=== PATIENT | male | born 1970 | race Caucasian/White ===

== ENCOUNTER 2016-05-30 03:01 | Emergency (ER) | payer MEDICARE, MEDICAID ==
[~2016-05-30 03:01] MED LIST: ACET50TAOT PO; AMBI5TAB PO; AUGM875T27 PO; BUPR300T34 PO; CARB1TAB20 PO; CARB200C5 PO; CARB20TA PO; CLON0.5T PO; DEXI60CA PO; DIPH25CA PO; DRIS50002 PO; DULO1CAP2 PO; FLOM5CAP PO; KLON0.5T PO; LIPI10TA PO; LISI10TA4 PO; METF500T PO; OMEP40CA2 PO; PERC10TA17 PO; PRIL40CA PO; PRIN20TA3 PO; TRIC145T PO; VENL37TA PO; VITMTA PO; WELL100T PO; WELLTAB40 PO; ZYPR5TAB2 PO
[2016-05-30] MEDS ORDERED: AUGMENTIN 875 MG TAB As Ordered ONE (04:33)
--- NOTE | 2016-05-30 04:44 | EDDOCDS ---
Nurse's Notes [facility] Name: Vic Wellington Age: 46 yrs Sex: Male : 1970 Arrival Date: 05/30/2016 Time: 03:01 Bed 15 Private MD: Kristian Starr Diagnosis: Acute maxillary sinusitis Presentation: 05/30 03:13 Presenting complaint: Patient states: Pt states he feels like he has a fever; aches in js15 face and body; states his sinuses are clogged. Complains of painful urination as well. Adult Sepsis Screening: The patient does not have new or worsening altered mentation. Patient's respiratory rate is less than 22. Systolic blood pressure is greater than 100. Patient has a qSOFA score of 0- Negative Sepsis Screen. Suicide/Homicide risk assessment- the patient denies having any suicidal and/or homicidal ideations and does not present with any other emotional, behavioral or mental health complaints. Status: Patient is not a agricultural services director or dependent. Transition of care: patient was not received from another setting of care. 03:13 Acuity: CHINEDU Level 4 js15 03:13 Method Of Arrival: Walkin/Carried/Asstd js15 Triage Assessment: 03:20 General: Appears in no apparent distress, comfortable. Pain: Location: "generalized js15 aches" Pain currently is 7 out of 10 on a pain scale. HIV screening NA for this visit Offered previously. Neurological: Level of Consciousness is awake, alert, obeys commands, Oriented to person, place, time. Respiratory: Airway is patent Respiratory effort is even, unlabored, Respiratory pattern is regular, symmetrical. Derm: Skin is pink, warm & dry. Historical: - Allergies: Amitriptyline; Codeine Sulfate; Nortriptyline; NSAIDS; - Home Meds: 1. carbamazepine 200 mg Oral CM12 2 caps 2 times per day 2. lisinopril 10 mg Oral tab 1 tab once daily 3. multivitamin Oral tab 1 tab daily 4. Vitamin D Oral 52677 unit every 2 weeks 5. Wellbutrin 300mg Oral tab daily 6. Lipitor 10 mg Oral tab 1 tab once daily 7. Coricidin HBP Cold and Flu 2-325 mg oral tab as needed (Last dose: 05/29/2016) - PMHx: Anxiety; Bipolar disorder; Bulging discs in neck and back; chronic sensory peripheral neuropathy; Depression; GERD; Hypercholesterolemia; Hypertension; Diabetes - NIDDM: controlled; - PSHx: none; - Social history: Smoking status: Patient states former smoker of tobacco. No barriers to communication noted, The patient speaks fluent Burkinan, Speaks appropriately for age. - Family history: Not pertinent. - : The pt / caregiver states he / she is not on anticoagulants. Home medication list is obtained from the patient, [employer] import data, pill bottles. - Exposure Risk Screening:: None identified. Screenin:41 Screening information is obtained from the patient. Fall risk: No risks identified. kas2 Assistance ADL's: requires no assistance with activities of daily living. Abuse/DV Screen: The patient / caregiver reports he/she is: not in a situation that causes fear, pain or injury. Abuse/DV Screen: The patient / caregiver reports he/she is: not in a situation that causes fear, pain or injury. Abuse/DV Screen: The patient / caregiver reports he/she is: not in a situation that causes fear, pain or injury. Nutritional screening: No deficits noted. Advance Directives: Currently, there is no health care proxy. There is no active DNR order. There is no living will. There is no Power of Product Development Actuary. home support is adequate. Assessment: 04:39 General: Appears in no apparent distress, uncomfortable, well nourished, well groomed, kas2 Behavior is appropriate for age, cooperative. Pain: Location: sinuses Pain currently is 6 out of 10 on a pain scale. Neurological: Level of Consciousness is awake, alert, Oriented to person, place, time. EENT: sinuses. Respiratory: Airway is patent Respiratory effort is even, unlabored, Respiratory pattern is regular, symmetrical, Breath sounds are clear bilaterally. Derm: Skin is intact, Skin is dry, Skin is pink, warm & dry. Skin temperature is warm. Vital Signs: 03:12 BP 142 / 93; Pulse 79; Resp 20; Temp 99.6(TE); Pulse Ox 96% on R/A; Weight 106.59 kg; js15 Height 6 ft. 0 in. (182.88 cm); 04:39 BP 143 / 93; Pulse 71; Resp 18; Temp 99.9(O); Pulse Ox 99% ; Pain 6/10; jlm 03:12 Body Mass Index 31.87 (106.59 kg, 182.88 cm) [facility] [place] Vitals: 03:12 Log In Time: May 30, 2016 at 03:01. 15 ED Course: 03:03 Patient visited by Bebo Keller, Reg. pm4 03:03 Kristian Starr is Private Physician. pm4 03:03 Patient moved to Waiting pm4 03:10 Patient moved to Triage 1 js15 03:15 Triage Initiated js15 03:21 Hoda Ahuja,RN is Primary Nurse. js15 03:21 Patient moved to 15 js15 03:57 [facility] Payment Agreement was scanned into [employer] and attached to record. hs2 04:03 Ruben Macario DO is Attending Physician. cs11 04:03 Patient visited by Ruben Macario DO. cs11 04:11 Patient moved to Radiology jono 04:16 Patient moved to 15 jono 04:40 Patient visited by Terra Pool, Cook Chief. [facility] 04:41 No IV's were initiated during this patient's visit. No procedures done that require kas2 assistance. 04:42 Patient visited by Johanna Bernstein RN. kas2 04:42 The patient / caregiver is instructed regarding the plan of care and ED course. kas2 Administered Medications: 04:35 Drug: Amoxicillin-Clavulanate 1 tabs [amoxicillin 875 mg-potassium clavulanate 125 mg kas2 tablet (1 tabs)] Route: PO; Order Results: There are currently no results for this order. Outcome: 04:29 Discharge ordered by Provider. cs11 04:41 Discharge Assessment: patient administered narcotics - no. The following High Risk kas2 Discharge criteria are identified: Discharged to home ambulatory, with friend. Condition: good Condition: stable Condition: improved. CT Study completed. Property :Personal belongings accompany Pt. 04:42 Patient left the ED. kas2 Signatures: Acevedo, Allen jono Ruben Macario DO DO cs11 Terra Pool, Cook Chief Unit Tanya Velazquez RN RN js15 Suki Parry, Reg Reg hs2 Johanna Bernstein RN RN kas2 Bebo Keller, Reg Reg pm4 MTDD
--- NOTE | 2016-05-30 04:44 | EDDOCDS ---
Physician Documentation [facility] Name: Vic Wellington Age: 46 yrs Sex: Male : 1970 Arrival Date: 05/30/2016 Time: 03:01 Bed 15 Private MD: Kristian Starr Disposition: 05/30/16 04:29 Discharged to Home/Self Care. Impression: Acute maxillary sinusitis. - Condition is Stable. - Prescriptions for Augmentin 500- 125 mg Oral Tablet - take 1 tablet by ORAL route every 8 hours for 10 days; 30 tablet. - Medication Reconciliation, Local Pharmacy Hours form. - Follow up: Private Physician; When: Call to arrange an appointment; Reason: Recheck today's complaints. - Problem is new. - Symptoms have improved. Historical: - Allergies: Amitriptyline; Codeine Sulfate; Nortriptyline; NSAIDS; - Home Meds: 1. carbamazepine 200 mg Oral CM12 2 caps 2 times per day 2. lisinopril 10 mg Oral tab 1 tab once daily 3. multivitamin Oral tab 1 tab daily 4. Vitamin D Oral 98364 unit every 2 weeks 5. Wellbutrin 300mg Oral tab daily 6. Lipitor 10 mg Oral tab 1 tab once daily 7. Coricidin HBP Cold and Flu 2-325 mg oral tab as needed (Last dose: 05/29/2016) - PMHx: Anxiety; Bipolar disorder; Bulging discs in neck and back; chronic sensory peripheral neuropathy; Depression; GERD; Hypercholesterolemia; Hypertension; Diabetes - NIDDM: controlled; - PSHx: none; - Social history: Smoking status: Patient states former smoker of tobacco. No barriers to communication noted, The patient speaks fluent Kazakh, Speaks appropriately for age. - Family history: Not pertinent. - : The pt / caregiver states he / she is not on anticoagulants. Home medication list is obtained from the patient, [employer] import data, pill bottles. - Exposure Risk Screening:: None identified. Vital Signs: 05/30 03:12 BP 142 / 93; Pulse 79; Resp 20; Temp 99.6(TE); Pulse Ox 96% on R/A; Weight 106.59 kg / js15 234.99 lbs; Height 6 ft. 0 in. (182.88 cm); 04:39 BP 143 / 93; Pulse 71; Resp 18; Temp 99.9(O); Pulse Ox 99% ; Pain 6/10; jlm 03:12 Body Mass Index 31.87 (106.59 kg, 182.88 cm) js15 MDM: 03:57 [facility] Payment Agreement was scanned into [employer] and attached to record. hs2 04:05 Chest, 2 View (pa\E\lat) Ordered. EDMS 04:06 Financial registration complete. hs2 04:26 Amoxicillin-Clavulanate 875 mg 1 tabs PO once ordered. cs11 Administered Medications: 04:35 Drug: Amoxicillin-Clavulanate 1 tabs [amoxicillin 875 mg-potassium clavulanate 125 mg kas2 tablet (1 tabs)] Route: PO; Signatures: Dispatcher [employer] EDMS Ruben Macario, DO cs11 Tanya Hammond,RN RN js15 Suki Parry, Reg Reg hs2 Johanna BernsteinRN RN kas2 The chart was reviewed and I authenticate all verbal orders and agree with the evaluation and treatment provided.Attachments: 03:57 [facility] Payment Agreement hs2 MTDD
--- NOTE | 2016-05-30 05:10 | REP ---
Clinical: Cough . Comparison: 04/10/2006 . Technique: PA and lateral. Findings: The mediastinum and cardiac silhouette are normal. The lung eckert are clear and without acute consolidation, effusion, or pneumothorax. The skeletal structures are intact and normal. Impression: 1. No acute cardiopulmonary process. Signed by Sincere Fisher MD 05/30/2016 05:02 A
--- NOTE | 2016-06-01 05:43 | EDDOCDS ---
Physician Documentation [facility] Name: Vic Wellington Age: 46 yrs Sex: Male : 1970 Arrival Date: 05/30/2016 Time: 03:01 Bed 15 Private MD: Kristian Starr Disposition: 05/30/16 04:29 Discharged to Home/Self Care. Impression: Acute maxillary sinusitis. - Condition is Stable. - Prescriptions for Augmentin 500- 125 mg Oral Tablet - take 1 tablet by ORAL route every 8 hours for 10 days; 30 tablet. - Medication Reconciliation, Local Pharmacy Hours form. - Follow up: Private Physician; When: Call to arrange an appointment; Reason: Recheck today's complaints. - Problem is new. - Symptoms have improved. Historical: - Allergies: Amitriptyline; Codeine Sulfate; Nortriptyline; NSAIDS; - Home Meds: 1. carbamazepine 200 mg Oral CM12 2 caps 2 times per day 2. lisinopril 10 mg Oral tab 1 tab once daily 3. multivitamin Oral tab 1 tab daily 4. Vitamin D Oral 69149 unit every 2 weeks 5. Wellbutrin 300mg Oral tab daily 6. Lipitor 10 mg Oral tab 1 tab once daily 7. Coricidin HBP Cold and Flu 2-325 mg oral tab as needed (Last dose: 05/29/2016) - PMHx: Anxiety; Bipolar disorder; Bulging discs in neck and back; chronic sensory peripheral neuropathy; Depression; GERD; Hypercholesterolemia; Hypertension; Diabetes - NIDDM: controlled; - PSHx: none; - Social history: Smoking status: Patient states former smoker of tobacco. No barriers to communication noted, The patient speaks fluent Estonian, Speaks appropriately for age. - Family history: Not pertinent. - : The pt / caregiver states he / she is not on anticoagulants. Home medication list is obtained from the patient, [employer] import data, pill bottles. - Exposure Risk Screening:: None identified. Vital Signs: 05/30 03:12 BP 142 / 93; Pulse 79; Resp 20; Temp 99.6(TE); Pulse Ox 96% on R/A; Weight 106.59 kg / js15 234.99 lbs; Height 6 ft. 0 in. (182.88 cm); 04:39 BP 143 / 93; Pulse 71; Resp 18; Temp 99.9(O); Pulse Ox 99% ; Pain 6/10; jlm 03:12 Body Mass Index 31.87 (106.59 kg, 182.88 cm) js15 MDM: 03:57 [facility] Payment Agreement was scanned into [employer] and attached to record. hs2 04:05 Chest, 2 View (pa\E\lat) Ordered. EDMS 04:06 Financial registration complete. hs2 04:26 Amoxicillin-Clavulanate 875 mg 1 tabs PO once ordered. cs11 14:29 T-Sheet-- Draft Copy was scanned into [employer] and attached to record. gb Administered Medications: 04:35 Drug: Amoxicillin-Clavulanate 1 tabs [amoxicillin 875 mg-potassium clavulanate 125 mg kas2 tablet (1 tabs)] Route: PO; Signatures: Dispatcher [employer] EDMS Yris Estrada, Reg Reg gb Ruben Macario, DO cs11 Tanya Hammond,RN RN js15 Suki Parry, Reg Reg hs2 Johanna Bernstein,FRANCISCO RN kas2 The chart was reviewed and I authenticate all verbal orders and agree with the evaluation and treatment provided.Attachments: 03:57 [facility] Payment Agreement hs2 14:29 T-Sheet-- Draft Copy gb Chart Complete MTDD
--- NOTE | 2016-06-01 05:43 | EDDOCDS ---
Nurse's Notes [facility] Name: Vic Wellington Age: 46 yrs Sex: Male : 1970 Arrival Date: 05/30/2016 Time: 03:01 Bed 15 Private MD: Kristian Starr Diagnosis: Acute maxillary sinusitis Presentation: 05/30 03:13 Presenting complaint: Patient states: Pt states he feels like he has a fever; aches in js15 face and body; states his sinuses are clogged. Complains of painful urination as well. Adult Sepsis Screening: The patient does not have new or worsening altered mentation. Patient's respiratory rate is less than 22. Systolic blood pressure is greater than 100. Patient has a qSOFA score of 0- Negative Sepsis Screen. Suicide/Homicide risk assessment- the patient denies having any suicidal and/or homicidal ideations and does not present with any other emotional, behavioral or mental health complaints. Status: Patient is not a interlibrary loan services librarian or dependent. Transition of care: patient was not received from another setting of care. 03:13 Acuity: CHINEDU Level 4 js15 03:13 Method Of Arrival: Walkin/Carried/Asstd js15 Triage Assessment: 03:20 General: Appears in no apparent distress, comfortable. Pain: Location: "generalized js15 aches" Pain currently is 7 out of 10 on a pain scale. HIV screening NA for this visit Offered previously. Neurological: Level of Consciousness is awake, alert, obeys commands, Oriented to person, place, time. Respiratory: Airway is patent Respiratory effort is even, unlabored, Respiratory pattern is regular, symmetrical. Derm: Skin is pink, warm & dry. Historical: - Allergies: Amitriptyline; Codeine Sulfate; Nortriptyline; NSAIDS; - Home Meds: 1. carbamazepine 200 mg Oral CM12 2 caps 2 times per day 2. lisinopril 10 mg Oral tab 1 tab once daily 3. multivitamin Oral tab 1 tab daily 4. Vitamin D Oral 56377 unit every 2 weeks 5. Wellbutrin 300mg Oral tab daily 6. Lipitor 10 mg Oral tab 1 tab once daily 7. Coricidin HBP Cold and Flu 2-325 mg oral tab as needed (Last dose: 05/29/2016) - PMHx: Anxiety; Bipolar disorder; Bulging discs in neck and back; chronic sensory peripheral neuropathy; Depression; GERD; Hypercholesterolemia; Hypertension; Diabetes - NIDDM: controlled; - PSHx: none; - Social history: Smoking status: Patient states former smoker of tobacco. No barriers to communication noted, The patient speaks fluent Chilean, Speaks appropriately for age. - Family history: Not pertinent. - : The pt / caregiver states he / she is not on anticoagulants. Home medication list is obtained from the patient, [employer] import data, pill bottles. - Exposure Risk Screening:: None identified. Screenin:41 Screening information is obtained from the patient. Fall risk: No risks identified. kas2 Assistance ADL's: requires no assistance with activities of daily living. Abuse/DV Screen: The patient / caregiver reports he/she is: not in a situation that causes fear, pain or injury. Abuse/DV Screen: The patient / caregiver reports he/she is: not in a situation that causes fear, pain or injury. Abuse/DV Screen: The patient / caregiver reports he/she is: not in a situation that causes fear, pain or injury. Nutritional screening: No deficits noted. Advance Directives: Currently, there is no health care proxy. There is no active DNR order. There is no living will. There is no Power of Kitchen Manager. home support is adequate. Assessment: 04:39 General: Appears in no apparent distress, uncomfortable, well nourished, well groomed, kas2 Behavior is appropriate for age, cooperative. Pain: Location: sinuses Pain currently is 6 out of 10 on a pain scale. Neurological: Level of Consciousness is awake, alert, Oriented to person, place, time. EENT: sinuses. Respiratory: Airway is patent Respiratory effort is even, unlabored, Respiratory pattern is regular, symmetrical, Breath sounds are clear bilaterally. Derm: Skin is intact, Skin is dry, Skin is pink, warm & dry. Skin temperature is warm. Vital Signs: 03:12 BP 142 / 93; Pulse 79; Resp 20; Temp 99.6(TE); Pulse Ox 96% on R/A; Weight 106.59 kg; js15 Height 6 ft. 0 in. (182.88 cm); 04:39 BP 143 / 93; Pulse 71; Resp 18; Temp 99.9(O); Pulse Ox 99% ; Pain 6/10; jlm 03:12 Body Mass Index 31.87 (106.59 kg, 182.88 cm) 15 Vitals: 03:12 Log In Time: May 30, 2016 at 03:01. js15 ED Course: 03:03 Patient visited by Bebo Keller Reg. pm4 03:03 Kristian Starr is Private Physician. pm4 03:03 Patient moved to Waiting pm4 03:10 Patient moved to Triage 1 js15 03:15 Triage Initiated js15 03:21 Hoda Ahuja,RN is Primary Nurse. js15 03:21 Patient moved to 15 js15 03:57 [facility] Payment Agreement was scanned into [employer] and attached to record. hs2 04:03 Ruben Macario DO is Attending Physician. cs11 04:03 Patient visited by Ruben Macario DO. cs11 04:11 Patient moved to Radiology jono 04:16 Patient moved to 15 jono 04:40 Patient visited by Terra Pool, Water Mangle Tender. jlm 04:41 No IV's were initiated during this patient's visit. No procedures done that require kas2 assistance. 04:42 Patient visited by Johanna Bernstein RN. kas2 04:42 The patient / caregiver is instructed regarding the plan of care and ED course. kas2 05:34 Chest, 2 View (pa\\E\\lat) Returned. EDMS 14:29 T-Sheet-- Draft Copy was scanned into [employer] and attached to record. gb Administered Medications: 04:35 Drug: Amoxicillin-Clavulanate 1 tabs [amoxicillin 875 mg-potassium clavulanate 125 mg kas2 tablet (1 tabs)] Route: PO; Order Results: Radiology Order: Chest, 2 View (pa\\E\\lat) Test: Chest, 2 View (pa\\E\\lat) REASON FOR EXAMINATION: Cough; Clinical: Cough .; ; Comparison: 04/10/2006 .; ; Technique: PA and lateral.; ; Findings:; The mediastinum and cardiac silhouette are normal. The lung eckert are clear and; without acute consolidation, effusion, or pneumothorax. The skeletal structures; are intact and normal.; ; Impression:; 1. No acute cardiopulmonary process.; ; ; Signed by; Sincere Fisher MD 05/30/2016 05:02 A; Outcome: 04:29 Discharge ordered by Provider. cs11 04:41 Discharge Assessment: patient administered narcotics - no. The following High Risk [facility]2 Discharge criteria are identified: Discharged to home ambulatory, with friend. Condition: good Condition: stable Condition: improved. CT Study completed. Property :Personal belongings accompany Pt. 04:42 Patient left the ED. [facility] Signatures: Dispatcher [employer] EDMS Allen Acevedo Gloria, Reg Reg gb Ruben Macario, DO cs11 Terra Pool, Water Mangle Tender Unit Tanya Velazquez,RN RN js15 Suki Parry, Reg Reg hs2 Johanna Bernstein RN RN kas2 Bebo Keller, Reg Reg pm4 Chart Complete MTDD
--- NOTE | 2016-06-01 05:43 | EDDOCDS ---
Physician Documentation [facility] Name: Vic Wellington Age: 46 yrs Sex: Male : 1970 Arrival Date: 05/30/2016 Time: 03:01 Bed 15 Private MD: Kristian Starr Disposition: 05/30/16 04:29 Discharged to Home/Self Care. Impression: Acute maxillary sinusitis. - Condition is Stable. - Prescriptions for Augmentin 500- 125 mg Oral Tablet - take 1 tablet by ORAL route every 8 hours for 10 days; 30 tablet. - Medication Reconciliation, Local Pharmacy Hours form. - Follow up: Private Physician; When: Call to arrange an appointment; Reason: Recheck today's complaints. - Problem is new. - Symptoms have improved. Historical: - Allergies: Amitriptyline; Codeine Sulfate; Nortriptyline; NSAIDS; - Home Meds: 1. carbamazepine 200 mg Oral CM12 2 caps 2 times per day 2. lisinopril 10 mg Oral tab 1 tab once daily 3. multivitamin Oral tab 1 tab daily 4. Vitamin D Oral 35509 unit every 2 weeks 5. Wellbutrin 300mg Oral tab daily 6. Lipitor 10 mg Oral tab 1 tab once daily 7. Coricidin HBP Cold and Flu 2-325 mg oral tab as needed (Last dose: 05/29/2016) - PMHx: Anxiety; Bipolar disorder; Bulging discs in neck and back; chronic sensory peripheral neuropathy; Depression; GERD; Hypercholesterolemia; Hypertension; Diabetes - NIDDM: controlled; - PSHx: none; - Social history: Smoking status: Patient states former smoker of tobacco. No barriers to communication noted, The patient speaks fluent Swedish, Speaks appropriately for age. - Family history: Not pertinent. - : The pt / caregiver states he / she is not on anticoagulants. Home medication list is obtained from the patient, [employer] import data, pill bottles. - Exposure Risk Screening:: None identified. Vital Signs: 05/30 03:12 BP 142 / 93; Pulse 79; Resp 20; Temp 99.6(TE); Pulse Ox 96% on R/A; Weight 106.59 kg / js15 234.99 lbs; Height 6 ft. 0 in. (182.88 cm); 04:39 BP 143 / 93; Pulse 71; Resp 18; Temp 99.9(O); Pulse Ox 99% ; Pain 6/10; jlm 03:12 Body Mass Index 31.87 (106.59 kg, 182.88 cm) js15 MDM: 03:57 [facility] Payment Agreement was scanned into [employer] and attached to record. hs2 04:05 Chest, 2 View (pa\E\lat) Ordered. EDMS 04:06 Financial registration complete. hs2 04:26 Amoxicillin-Clavulanate 875 mg 1 tabs PO once ordered. cs11 14:29 T-Sheet-- Draft Copy was scanned into [employer] and attached to record. gb Administered Medications: 04:35 Drug: Amoxicillin-Clavulanate 1 tabs [amoxicillin 875 mg-potassium clavulanate 125 mg kas2 tablet (1 tabs)] Route: PO; Signatures: Dispatcher [employer] EDMS Yris Estrada, Reg Reg gb Ruben Macario, DO cs11 Tanya Hammond,RN RN js15 Suki Parry, Reg Reg hs2 Johanna Bernstein,FRANCISCO RN kas2 The chart was reviewed and I authenticate all verbal orders and agree with the evaluation and treatment provided.Attachments: 03:57 [facility] Payment Agreement hs2 14:29 T-Sheet-- Draft Copy gb Chart Complete MTDD
== END 2016-05-30 04:42 | disposition home or self-care (01) ==
LOC: M ED 03:01
DX: J01.90 Acute sinusitis, unspecified (principal); F31.9 Bipolar disorder, unspecified; M51.9 Unspecified thoracic, thoracolumbar and lumbosacral intervertebral disc disorder; G60.9 Hereditary and idiopathic neuropathy, unspecified; K21.9 Gastro-esophageal reflux disease without esophagitis; E78.00 Pure hypercholesterolemia, unspecified; I10 Essential (primary) hypertension; E11.9 Type 2 diabetes mellitus without complications; Z79.899 Other long term (current) drug therapy; Z88.8 Allergy status to other drugs, medicaments and biological substances; Z88.5 Allergy status to narcotic agent; Z88.6 Allergy status to analgesic agent; Z87.891 Personal history of nicotine dependence

== ENCOUNTER → 2016-09-28 | Outpatient (REF) | payer MEDICARE, MEDICAID | LOC: M SFHCPLAZ 13:07 | PROVIDERS: ATTEND Nurse Practitioner Adult Health | DX: R35.0 Frequency of micturition (principal) | CPT/HCPCS: 81002; 87086; G0463 ==

== ENCOUNTER → 2016-11-09 | Outpatient (REF) | payer MEDICARE ==
[~2016-11-09] MED LIST changes: -AUGM875T27 PO; +AUGM875T28 PO; -DEXI60CA PO; +DEXI60CA2 PO; -METF500T PO; +METF500T13 PO; -PERC10TA17 PO; +PERC10TA26 PO; -TRIC145T PO; +TRIC145T22 PO
== END ==
LOC: M SFHCPLAZ 11:45
PROVIDERS: ATTEND Internal Medicine
DX: I10 Essential (primary) hypertension (principal); E78.5 Hyperlipidemia, unspecified; Z79.899 Other long term (current) drug therapy

== ENCOUNTER → 2017-01-02 | Outpatient (CLI) | payer MEDICARE, MEDICAID | LOC: M LAB 07:49 | PROVIDERS: ATTEND Urology | DX: E29.1 Testicular hypofunction (principal) ==

== ENCOUNTER → 2017-01-18 | Outpatient (REF) | payer MEDICARE, MEDICAID | LOC: M SMT 13:06 | PROVIDERS: ATTEND Urology | DX: N39.0 Urinary tract infection, site not specified (principal) | CPT/HCPCS: 87086; G0463 ==

== ENCOUNTER 2017-03-01 08:30 | Outpatient (RCR) | payer MEDICARE, MEDICAID | END 2017-03-06 | disposition home or self-care (01) | LOC: M OT 08:30 | PROVIDERS: ATTEND Orthopaedic Surgery | DX: Z51.89 Encounter for other specified aftercare (principal); M79.642 Pain in left hand; M25.532 Pain in left wrist; M62.81 Muscle weakness (generalized) | CPT/HCPCS: 97035; 97110; 97140; 97165; G8984 ==

== ENCOUNTER 2017-03-13 12:41 | Outpatient (RCR) | payer MEDICARE, MEDICAID | END 2017-04-05 | LOC: M OT 12:41 | PROVIDERS: ATTEND Orthopaedic Surgery | DX: M79.642 Pain in left hand (principal); M25.532 Pain in left wrist | CPT/HCPCS: 97110; 97140; G8984; G8985; G8986 ==

== ENCOUNTER → 2017-04-10 | Outpatient (REF) | payer MEDICARE | LOC: M SMT 13:10 | PROVIDERS: ATTEND Urology | DX: R30.0 Dysuria (principal) | CPT/HCPCS: 51798; 81001; 87086; G0463 ==

== ENCOUNTER → 2017-05-22 | Outpatient (REF) | payer MEDICARE, MEDICAID ==
[2017-05-22 12:36] LABS: C REACTIVE PROTEIN QUANTITATIV < 0.30 MG/DL (0.00-0.30)
[2017-05-22 12:36] LABS: RHEUMATOID FACTOR QUANT < 10.0 IU/ML (0-15.0)
[2017-05-22 13:05] LABS: ERYTHROCYTE SEDIMENTATION RATE 3 mm/hr (0-15)
== END ==
LOC: M LABDRAWP 12:10
DX: G56.03 Carpal tunnel syndrome, bilateral upper limbs (principal)

== ENCOUNTER → 2017-05-22 | Outpatient (REF) | payer MEDICARE, MEDICAID ==
[2017-05-22 12:28] LABS: HEMATOCRIT 44.7 % (42.0-52.0); HEMOGLOBIN 15.3 g/dl (14.0-18.0); MEAN CORPUSCULAR HEMOGLOBIN 31.4 pg (27.0-33.0); MEAN CORPUSCULAR HGB CONC 34.2 g/dl (32.0-36.5); MEAN CORPUSCULAR VOLUME 91.8 fl (80.0-96.0); PLATELET COUNT, AUTOMATED 181 10^3/uL (150-450); RED BLOOD COUNT 4.87 10^6/uL (4.30-6.10); RED CELL DISTRIBUTION WIDTH 12.5 % (11.5-14.5); WHITE BLOOD COUNT 5.2 10^3/uL (4.0-10.0)
[2017-05-22 12:40] LABS: ALBUMIN 4.4 GM/DL (3.2-5.2); ALBUMIN/GLOBULIN RATIO 1.52 (1.00-1.93); ALKALINE PHOSPHATASE 67 U/L (45-117); ALT/SGPT 42 U/L (12-78); ANION GAP 7 MEQ/L (8-16); AST/SGOT 22 U/L (7-37); BILIRUBIN,TOTAL 0.6 MG/DL (0.2-1.0); BLOOD UREA NITROGEN 21 MG/DL (7-18); CARBON DIOXIDE LEVEL 28 MEQ/L (21-32); CHLORIDE LEVEL 106 MEQ/L (98-107); CHOLESTEROL LEVEL 188 MG/DL (<200); CHOLESTEROL RISK RATIO 4.086 (<5); CREATININE FOR GFR 1.01 MG/DL (0.70-1.30); GLOMERULAR FILTRATION RATE > 60.0 (>60); GLUCOSE, FASTING 107 MG/DL (70-105); HDL CHOLESTEROL 46 MG/DL (>40); LDL CHOLESTEROL 117.6 MG/DL (<100); NON-HDL-C 142 MG/DL; POTASSIUM SERUM 4.4 MEQ/L (3.5-5.1); SODIUM LEVEL 141 MEQ/L (136-145); TOTAL PROTEIN 7.3 GM/DL (6.4-8.2); TRIGLYCERIDES LEVEL 122 MG/DL (<150)
[2017-05-22 13:01] LABS: ESTIMATED AVERAGE GLUCOSE 108 MG/DL (60-110); HEMOGLOBIN A1c 5.4 %
[2017-05-22 13:10] LABS: MALB URINE SIEMENS 19.1 MG/L; MAU/CREAT RATIO 8.3 MCG/MG (0.0-30.0)
== END ==
LOC: M SFHCPLAZ 07:59
DX: G62.9 Polyneuropathy, unspecified (principal); I10 Essential (primary) hypertension; E11.9 Type 2 diabetes mellitus without complications; E78.5 Hyperlipidemia, unspecified; G56.03 Carpal tunnel syndrome, bilateral upper limbs
CPT/HCPCS: 80053

== ENCOUNTER → 2017-07-26 | Outpatient (REF) | payer MEDICARE, MEDICAID ==
[2017-07-26 13:29] LABS: ALBUMIN 3.8 GM/DL (3.2-5.2); ALBUMIN/GLOBULIN RATIO 1.31 (1.00-1.93); ALKALINE PHOSPHATASE 59 U/L (45-117); ALT/SGPT 43 U/L (12-78); ANION GAP 7 MEQ/L (8-16); AST/SGOT 18 U/L (7-37); BILIRUBIN,TOTAL 0.4 MG/DL (0.2-1.0); BLOOD UREA NITROGEN 19 MG/DL (7-18); CALCIUM LEVEL 8.9 MG/DL (8.5-10.1); CARBAMAZEPINE (TEGRETOL) LEVEL 3.1 UG/ML (4.0-10.0); CARBON DIOXIDE LEVEL 29 MEQ/L (21-32); CHLORIDE LEVEL 106 MEQ/L (98-107); CREATININE FOR GFR 0.73 MG/DL (0.70-1.30); GLOMERULAR FILTRATION RATE > 60.0 (>60); GLUCOSE, FASTING 98 MG/DL (70-100); POTASSIUM SERUM 4.4 MEQ/L (3.5-5.1); SODIUM LEVEL 142 MEQ/L (136-145); TOTAL PROTEIN 6.7 GM/DL (6.4-8.2)
[2017-07-26 13:49] LABS: HEMATOCRIT 41.3 % (42.0-52.0); HEMOGLOBIN 14.6 g/dl (14.0-18.0); MEAN CORPUSCULAR HEMOGLOBIN 31.9 pg (27.0-33.0); MEAN CORPUSCULAR HGB CONC 35.4 g/dl (32.0-36.5); MEAN CORPUSCULAR VOLUME 90.4 fl (80.0-96.0); PLATELET COUNT, AUTOMATED 156 10^3/uL (150-450); RED BLOOD COUNT 4.57 10^6/uL (4.30-6.10); RED CELL DISTRIBUTION WIDTH 12.2 % (11.5-14.5); WHITE BLOOD COUNT 4.5 10^3/uL (4.0-10.0)
== END ==
LOC: M SFHCPLAZ 10:00
DX: Z51.81 Encounter for therapeutic drug level monitoring (principal); Z79.899 Other long term (current) drug therapy
CPT/HCPCS: 80156

== ENCOUNTER → 2017-08-28 | Outpatient (REF) | payer MEDICARE, MEDICAID ==
[2017-08-28 13:58] LABS: ERYTHROCYTE SEDIMENTATION RATE 1 mm/hr (0-15)
[2017-08-28 14:53] LABS: FOLATE > 24.0 NG/ML; VITAMIN B12 LEVEL 318 PG/ML
[2017-08-28 17:54] LABS: C REACTIVE PROTEIN QUANTITATIV < 0.30 MG/DL (0.00-0.30); FREE T4 0.78 NG/DL (0.76-1.46)
== END ==
LOC: M SFHCPLAZ 11:33
DX: R53.82 Chronic fatigue, unspecified (principal); M54.81 Occipital neuralgia
CPT/HCPCS: 82746

== ENCOUNTER → 2018-04-15 | Outpatient (REF) | payer OTHER ==
[2018-04-15 18:03] LABS: BASO % 0.8 % (0.0-1.0); EOS # 0.3 10^3/uL (0.0-0.50); EOS % 5.7 % (0.0-3.0); HEMATOCRIT 41.3 % (42.0-52.0); HEMOGLOBIN 14.5 g/dl (13.5-17.5); IMMATURE GRANULOCYTE % 0.2 % (0-3.0); LYMPH # 1.7 10^3/uL (1.5-4.5); LYMPH % 32.3 % (24.0-44.0); MEAN CORPUSCULAR HEMOGLOBIN 32.4 pg (27.0-33.0); MEAN CORPUSCULAR HGB CONC 35.1 g/dl (32.0-36.5); MEAN CORPUSCULAR VOLUME 92.2 fl (80.0-96.0); MONO # 0.4 10^3/uL (0.0-0.8); MONO % 8.4 % (0.0-5.0); NEUTROPHILS # 2.8 10^3/uL (1.8-7.7); NEUTROPHILS % 52.6 % (36.0-66.0); PLATELET COUNT, AUTOMATED 177 10^3/uL (150-450); RED BLOOD COUNT 4.48 10^6/uL (4.30-6.10); WHITE BLOOD COUNT 5.2 10^3/uL (4.0-10.0)
[2018-04-15 18:36] LABS: ALBUMIN 3.9 GM/DL (3.2-5.2); ALBUMIN/GLOBULIN RATIO 1.22 (1.00-1.93); ALKALINE PHOSPHATASE 88 U/L (45-117); ALT/SGPT 26 U/L (12-78); ANION GAP 8 MEQ/L (8-16); AST/SGOT 11 U/L (7-37); BILIRUBIN,TOTAL 0.2 MG/DL (0.2-1.0); BLOOD UREA NITROGEN 19 MG/DL (7-18); CARBON DIOXIDE LEVEL 27 MEQ/L (21-32); CHLORIDE LEVEL 106 MEQ/L (98-107); CREATININE FOR GFR 0.74 MG/DL (0.70-1.30); GLOMERULAR FILTRATION RATE > 60.0 (>56); GLUCOSE, FASTING 98 MG/DL (70-100); POTASSIUM SERUM 4.2 MEQ/L (3.5-5.1); SODIUM LEVEL 141 MEQ/L (136-145); TOTAL PROTEIN 7.1 GM/DL (6.4-8.2)
== END ==
LOC: M LABNEURO 13:48
DX: R56.9 Unspecified convulsions (principal)
CPT/HCPCS: 80156

== ENCOUNTER → 2018-06-20 | Outpatient (CLI) | payer MEDICARE ==
[~2018-06-20] MED LIST changes: +ACET500T15 PO; -ACET50TAOT PO; +CARB1CAP2 PO; -CARB200C5 PO; -CLON0.5T PO; +CLON0.5T8 PO; -DRIS50002 PO; +DRIS50003 PO; +FLOM0.4C39 PO; -FLOM5CAP PO
--- NOTE | 2018-06-20 15:21 | REP ---
RENAL AND BLADDER ULTRASOUND: Real-time sonographic evaluation of kidneys performed. The kidneys are normal in size and echotexture, right kidney measuring 14.4 x 7.3 x 8.1 cm, and left kidney 13.8 x 7.8 x 8.4 cm. There is no hydronephrosis bilaterally. A cyst in the lower pole of the right kidney measures 7.8 x 7.3 x 7.2 cm. Multiple vascular calcifications are seen within the right kidney. I cannot exclude tiny calculi in the right renal collecting system. There is a smaller cyst in the mid right kidney 1.2 cm in diameter. A cyst in the lower pole of the left kidney measures 2.1 cm in diameter and another cyst in the mid aspect also measures 2.1 cm. Similar appearing vascular calcifications are seen in the region of the left renal pelvis. The prostate measures 3.5 x 3.5 x 3.6 cm for a total volume of 23 mL. Bladder measures 9.0 x 6.9 x 7.5 cm with no evidence of mass or calculus. Total volume is 304 mL. After voiding, residual is 76 mL, which is 25% of the original volume. IMPRESSION: Bilateral renal cysts, as discussed above, with the largest in the lower pole of the right kidney 7.8 cm in maximum diameter. Vascular calcifications are seen in each kidney. Tiny underlying calculi cannot be excluded bilaterally. Mild postvoid residual of 25%. Electronically Signed by Miguel Angel Figueroa MD 06/21/2018 03:51 P
== END ==
LOC: M RAD 12:38
PROVIDERS: ATTEND Nurse Practitioner Family
DX: N28.1 Cyst of kidney, acquired (principal)

== ENCOUNTER → 2018-07-30 | Outpatient (CLI) | payer MEDICARE ==
[2018-07-30 07:03] LABS: HEMATOCRIT 40.2 % (42.0-52.0); HEMOGLOBIN 13.6 g/dl (13.5-17.5); MEAN CORPUSCULAR HEMOGLOBIN 31.5 pg (27.0-33.0); MEAN CORPUSCULAR HGB CONC 33.8 g/dl (32.0-36.5); MEAN CORPUSCULAR VOLUME 93.1 fl (80.0-96.0); PLATELET COUNT, AUTOMATED 188 10^3/uL (150-450); RED BLOOD COUNT 4.32 10^6/uL (4.30-6.10); WHITE BLOOD COUNT 5.3 10^3/uL (4.0-10.0)
[2018-07-30 07:38] LABS: HEMOGLOBIN A1c 5.5 %
[2018-07-30 07:42] LABS: ALBUMIN 3.5 GM/DL (3.2-5.2); ALT/SGPT 28 U/L (12-78); BILIRUBIN,TOTAL 0.3 MG/DL (0.2-1.0); BLOOD UREA NITROGEN 18 MG/DL (7-18); CALCIUM LEVEL 8.8 MG/DL (8.5-10.1); CARBON DIOXIDE LEVEL 29 MEQ/L (21-32); CHLORIDE LEVEL 105 MEQ/L (98-107); CHOLESTEROL LEVEL 162 MG/DL (<200); CHOLESTEROL RISK RATIO 4.153 (<5); CREATININE FOR GFR 0.77 MG/DL (0.70-1.30); GLOMERULAR FILTRATION RATE > 60.0 (>56); GLUCOSE, FASTING 112 MG/DL (70-100); HDL CHOLESTEROL 39 MG/DL (>40); LDL CHOLESTEROL 102 MG/DL (<100); MAGNESIUM LEVEL 1.8 MG/DL (1.8-2.4); NON-HDL-C 123 MG/DL; POTASSIUM SERUM 4.3 MEQ/L (3.5-5.1); SODIUM LEVEL 140 MEQ/L (136-145); TOTAL PROTEIN 6.7 GM/DL (6.4-8.2); TRIGLYCERIDES LEVEL 106 MG/DL (<150)
[2018-07-30 07:56] LABS: MALB URINE SIEMENS 13.1 MG/L; MAU/CREAT RATIO 6.3 MCG/MG (0.0-30.0)
== END ==
LOC: M LAB 06:34
PROVIDERS: ATTEND Internal Medicine
DX: I10 Essential (primary) hypertension (principal); E11.9 Type 2 diabetes mellitus without complications; E78.5 Hyperlipidemia, unspecified; G47.33 Obstructive sleep apnea (adult) (pediatric); R53.82 Chronic fatigue, unspecified

== ENCOUNTER 2018-12-28 10:07 | Emergency (ER) | payer MEDICARE, MEDICAID ==
[~2018-12-28] VITALS: Ht 182.9 cm; Wt 126.9 kg
[~2018-12-28 10:07] MED LIST changes: -CARB1CAP2 PO; +CARB200C4 PO; -DIPH25CA PO; +DIPH25CA32 PO; -DULO1CAP2 PO; +DULO1CAP5 PO
[2018-12-28] MEDS ORDERED: ASPI81CH33 PO (10:20)
[2018-12-28] MEDS ORDERED: TAMS1CAP17 (10:20)
[2018-12-28 11:49] LABS: BASO % 0.5 % (0.0-1.0); EOS # 0.2 10^3/uL (0.0-0.50); EOS % 3.2 % (0.0-3.0); HEMATOCRIT 41.4 % (42.0-52.0); HEMOGLOBIN 14.7 g/dl (13.5-17.5); LYMPH % 35.3 % (24.0-44.0); MEAN CORPUSCULAR HEMOGLOBIN 31.9 pg (27.0-33.0); MEAN CORPUSCULAR HGB CONC 35.5 g/dl (32.0-36.5); MEAN CORPUSCULAR VOLUME 89.8 fl (80.0-96.0); MONO # 0.5 10^3/uL (0.0-0.8); MONO % 9.2 % (0.0-5.0); NEUTROPHILS # 2.9 10^3/uL (1.8-7.7); NEUTROPHILS % 51.3 % (36.0-66.0); PLATELET COUNT, AUTOMATED 147 10^3/uL (150-450); RED BLOOD COUNT 4.61 10^6/uL (4.30-6.10); WHITE BLOOD COUNT 5.6 10^3/uL (4.0-10.0)
[2018-12-28 12:13] LABS: ALBUMIN 3.8 GM/DL (3.2-5.2); ALT/SGPT 32 U/L (12-78); BILIRUBIN,DIRECT < 0.1 MG/DL (0.0-0.2); BILIRUBIN,TOTAL 0.3 MG/DL (0.2-1.0); BLOOD UREA NITROGEN 20 MG/DL (7-18); CARBON DIOXIDE LEVEL 28 MEQ/L (21-32); CHLORIDE LEVEL 108 MEQ/L (98-107); CPK CREATINE PHOSPHOKINASE 123 U/L (39-308); CREATININE FOR GFR 0.74 MG/DL (0.70-1.30); GLOMERULAR FILTRATION RATE > 60.0 (>56); GLUCOSE, FASTING 99 MG/DL (70-100); MB/CK RELATIVE INDEX 1.63 (< OR =4); POTASSIUM SERUM 4.3 MEQ/L (3.5-5.1); SODIUM LEVEL 140 MEQ/L (136-145); TOTAL PROTEIN 7.3 GM/DL (6.4-8.2); TROPONIN I < 0.02 NG/ML (< 0.10)
--- NOTE | 2018-12-28 14:07 | REP ---
Portable chest, 11:39 a.m., single AP view with the patient upright: Comparison is the PA and lateral chest of 05/30/2016. The lung eckert are clear. The cardiac size is enlarged . The hoda, mediastinum, and skeletal structures are unremarkable. Impression: Cardiomegaly, otherwise, negative portable chest. Electronically Signed by Miguel Angel Carbajal MD 12/28/2018 01:58 P
[2018-12-28 14:57] LABS: CK-MB VALUE MASS 1.8 NG/ML (<3.6); CPK CREATINE PHOSPHOKINASE 117 U/L (39-308); MB/CK RELATIVE INDEX 1.54 (< OR =4); TROPONIN I < 0.02 NG/ML (< 0.10)
[2018-12-28 15:30] VITALS: BP 123/78
[2018-12-28] MEDS ORDERED: NITR0.4S14 SL (15:41)
--- NOTE | 2018-12-29 07:11 | ECGEPIP ---
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
--- NOTE | 2018-12-29 07:14 | ECGEPIP ---
[facility] - ED Test Date: 2018-12-28 Pat Name: DANGELO RESENDIZ Department: Room: - Gender: Male Attorney: : [id number] Requested By: Rupesh Clayton Order Number: [id number] Reading MD: Luz Clayton Measurements Intervals Stacy Rate: 63 P: 19 PA: 176 QRS: 45 QRSD: 109 T: 38 QT: 403 QTc: 414 Interpretive Statements SINUS RHYTHM WITH OCCASIONAL SUPRAVENTRICULAR PREMATURE COMPLEXES INFERIOR MYOCARDIAL INFARCTION, PROBABLY OLD INCREASED ECTOPY 12/28/18 Electronically Signed on 12-29-2018 7:14:05 EDT by Luz Clayton
== END 2018-12-28 15:53 | disposition home or self-care (01) ==
LOC: M ED 10:07
DX: R53.82 Chronic fatigue, unspecified (principal); I10 Essential (primary) hypertension; E11.9 Type 2 diabetes mellitus without complications; E78.5 Hyperlipidemia, unspecified; F41.9 Anxiety disorder, unspecified; M19.90 Unspecified osteoarthritis, unspecified site; Z88.2 Allergy status to sulfonamides; Z88.1 Allergy status to other antibiotic agents; Z88.5 Allergy status to narcotic agent; Z88.8 Allergy status to other drugs, medicaments and biological substances; Z79.899 Other long term (current) drug therapy; Z79.82 Long term (current) use of aspirin

== ENCOUNTER → 2019-01-13 | Outpatient (CLI) | payer MEDICARE, MEDICAID ==
[~2019-01-13] MED LIST changes: +ASPI81CH33 PO; +METHACHOLINE KIT (J7674) INH ONE; +NITR0.4S14 SL; +TAMS1CAP17
--- NOTE | 2019-01-15 10:27 | PFTRPT ---
Height: 72.00 Inches Weight: 279.00 Lbs BSA: 2.45 Diagnosis: R07.9 DATE OF PROCEDURE: 01/15/2019 ORDERED BY: SHELLY Giron Spirometry: Excellent technical quality. Forced vital capacity normal. FEV1 in proportion. Obstructive index is, therefore, normal. Flow Volume Loop: Expiratory limb of the flow volume loop is normal. Lung Volumes: Total lung capacity normal. Residual volume in proportion. Diffusing Capacity: Diffusing capacity normal. Hemoglobin: No hemoglobin available for correction. Airway Mechanics: Airway resistance and conductance are normal. IMPRESSION: Normal study. MTDD
--- NOTE | 2019-01-15 11:23 | PFTRPT ---
Height: 72.00 Inches Weight: 279.00 Lbs BSA: 2.45 Diagnosis: R07.9 DATE OF PROCEDURE: 01/15/2019 ORDERED BY: Laura Norman INTERPRETATION: Excellent technical quality. Under protocol, methacholine was administered. Some difficulty with cough was noted. Even after a maximal dose of 25 mg or 188.875 CDUs, no provocation dose ever achieved. IMPRESSION: Negative methacholine challenge study. MTDD
== END ==
LOC: M CARPUL 09:42
PROVIDERS: ATTEND Nurse Practitioner Adult Health
DX: R07.9 Chest pain, unspecified (principal)
CPT/HCPCS: 94010; 94070; 94726; 94729; 95070; J7674

== ENCOUNTER → 2019-01-31 | Outpatient (REF) | payer MEDICARE, MEDICAID ==
[~2019-01-31] MED LIST changes: -METHACHOLINE KIT (J7674) INH ONE
[2019-01-31 19:10] LABS: FOLATE 17.8 NG/ML
== END ==
LOC: M SFHCPLAZ 14:33
PROVIDERS: ATTEND Internal Medicine
DX: R53.82 Chronic fatigue, unspecified (principal)
CPT/HCPCS: 36415; 82607; 82746; G0463

== ENCOUNTER → 2019-05-29 | Outpatient (CLI) | payer MEDICARE, MEDICAID ==
[~2019-05-29] MED LIST changes: -BUPR300T34 PO; +BUPR300T92 PO; +CLON0.5T2 PO; -CLON0.5T8 PO; -OMEP40CA2 PO; +OMEP40CA97 PO
[2019-05-29 10:54] LABS: FOLLICLE STIMULATING HORMONE 6.8 mIU/mL (1.4-18.1); LUTEINIZING HORMONE 2.7 mIU/mL (1.5-9.3)
[2019-05-31 00:11] LABS: TESTOSTERONE FREE (DIRECT) 6.3 pg/mL (7.2-24.0)
== END ==
LOC: M LAB 08:32
PROVIDERS: ATTEND Nurse Practitioner Family
DX: R68.82 Decreased libido (principal)

== ENCOUNTER → 2019-07-11 | Outpatient (CLI) | payer MEDICARE, MEDICAID ==
[2019-07-11 10:20] LABS: FOLLICLE STIMULATING HORMONE 13.3 mIU/mL (1.4-18.1)
[2019-07-13 00:06] LABS: TESTOSTERONE FREE (DIRECT) 9.4 pg/mL (7.2-24.0)
== END ==
LOC: M LAB 08:27
PROVIDERS: ATTEND Nurse Practitioner Family
DX: E29.1 Testicular hypofunction (principal)

== ENCOUNTER → 2019-10-27 | Outpatient (CLI) | payer MEDICARE, MEDICAID ==
[2019-10-27 09:48] LABS: FOLLICLE STIMULATING HORMONE 13.2 mIU/mL (1.4-18.1); LUTEINIZING HORMONE 4.3 mIU/mL (1.5-9.3)
[2019-10-28 17:07] LABS: TESTOSTERONE FREE (DIRECT) 9.4 pg/mL (7.2-24.0)
== END ==
LOC: M LAB 08:46
PROVIDERS: ATTEND Nurse Practitioner Family
DX: E29.1 Testicular hypofunction (principal)

== ENCOUNTER → 2019-11-19 | Outpatient (REF) | payer MEDICARE, MEDICAID ==
[2019-11-19 17:14] LABS: BASO % 0.7 % (0.0-1.0); EOS # 0.2 10^3/uL (0.0-0.5); EOS % 4.2 % (0.0-3.0); HEMATOCRIT 47.1 % (42.0-52.0); LYMPH # 2.4 10^3/uL (1.5-5.0); LYMPH % 41.5 % (24.0-44.0); MEAN CORPUSCULAR HEMOGLOBIN 32.7 pg (27.0-33.0); MEAN CORPUSCULAR VOLUME 96.3 fl (80.0-96.0); MONO # 0.5 10^3/uL (0.0-0.8); MONO % 9.5 % (0.0-5.0); NEUTROPHILS # 2.5 10^3/uL (1.5-8.5); NEUTROPHILS % 43.7 % (36.0-66.0); PLATELET COUNT, AUTOMATED 165 10^3/uL (150-450); RED BLOOD COUNT 4.89 10^6/uL (4.30-6.10); WHITE BLOOD COUNT 5.7 10^3/uL (4.0-10.0)
[2019-11-19 17:23] LABS: ALBUMIN 3.9 GM/DL (3.2-5.2); ALT/SGPT 38 U/L (12-78); BILIRUBIN,TOTAL 0.2 MG/DL (0.2-1.0); BLOOD UREA NITROGEN 20 MG/DL (7-18); CALCIUM LEVEL 9.1 MG/DL (8.5-10.1); CARBON DIOXIDE LEVEL 30 MEQ/L (21-32); CHLORIDE LEVEL 106 MEQ/L (98-107); CHOLESTEROL LEVEL 220 MG/DL (<200); CHOLESTEROL RISK RATIO 6.285 (<5); CREATININE FOR GFR 0.87 MG/DL (0.70-1.30); GLOMERULAR FILTRATION RATE > 60.0 (>56); GLUCOSE, FASTING 97 MG/DL (70-100); HDL CHOLESTEROL 35 MG/DL (>40); NON-HDL-C 185 MG/DL; POTASSIUM SERUM 4.4 MEQ/L (3.5-5.1); SODIUM LEVEL 142 MEQ/L (136-145); TOTAL PROTEIN 7.4 GM/DL (6.4-8.2); TRIGLYCERIDES LEVEL 484 MG/DL (<150)
[2019-11-19 17:39] LABS: MALB URINE SIEMENS 24.9 MG/L; MAU/CREAT RATIO 12.2 MCG/MG (0.0-30.0)
[2019-11-19 19:53] LABS: HEMOGLOBIN A1c 5.7 %
== END ==
LOC: M SFHCPLAZ 14:21
PROVIDERS: ATTEND Internal Medicine
DX: I10 Essential (primary) hypertension (principal); F31.9 Bipolar disorder, unspecified; E78.5 Hyperlipidemia, unspecified; E11.9 Type 2 diabetes mellitus without complications; R53.82 Chronic fatigue, unspecified; Z51.81 Encounter for therapeutic drug level monitoring

== ENCOUNTER → 2020-03-23 | Outpatient (REF) | payer MEDICARE, MEDICAID ==
[2020-03-23 17:08] LABS: C REACTIVE PROTEIN QUANTITATIV < 0.30 MG/DL (0.00-0.30); CPK CREATINE PHOSPHOKINASE 107 U/L (39-308); FREE T4 0.74 NG/DL (0.76-1.46); RHEUMATOID FACTOR QUANT < 10.0 IU/ML (<15.0); URIC ACID 4.7 MG/DL (3.5-7.2)
[2020-03-23 17:09] LABS: VITAMIN B12 LEVEL 378 PG/ML
[2020-03-23 17:10] LABS: FOLATE 17.3 NG/ML
[2020-03-23 17:20] LABS: HEPATITIS B SURFACE ANTIGEN NEGATIVE (NEGATIVE)
[2020-03-31 15:08] LABS: CYCLIC CITRULLINATED PEPTIDE 10 units (0-19); HEPATITIS B CORE ANTIBODY IGG Negative (Negative); HLA-B27 Negative (.); TESTOSTERONE FREE (DIRECT) 4.2 pg/mL (7.2-24.0)
== END ==
LOC: M SFHCRHEU 15:01
PROVIDERS: ATTEND Internal Medicine
DX: M25.50 Pain in unspecified joint (principal); M79.7 Fibromyalgia; R53.82 Chronic fatigue, unspecified
CPT/HCPCS: 81374; 82550; 82607; 82746; 84402; 84403; 84439; 84443; 84550; 85652; 86140; 86200; 86431; 86704; 86803; 87340; G0463

== ENCOUNTER → 2020-03-24 | Outpatient (CLI) | payer MEDICARE, MEDICAID ==
--- NOTE | 2020-03-24 16:29 | REP ---
INDICATION: PAIN IN UNSPECIFIED JOINT. COMPARISON: None. TECHNIQUE: Two frontal views of the pelvis FINDINGS: Osseous structures are intact and there is no evidence for acute fracture or dislocation. Bilateral sacroiliac joints are symmetric and normal. Hip joints demonstrate symmetric mild increased sclerosis and joint space narrowing. Surrounding soft tissues normal. IMPRESSION: No significant acute process. As above. <Electronically signed by Sincere Fisher > 03/24/20 0247
--- NOTE | 2020-03-24 16:38 | REP ---
INDICATION: PAIN IN UNSPECIFIED JOINT COMPARISON: None. TECHNIQUE: AP, lateral, bilateral oblique and sunrise views right and left knee. FINDINGS: Right and left knee demonstrate generalized age-related changes involving the tibiofemoral compartments. [place] view demonstrates fraying along the anterior margins of the right and left patella as well as subchondral sclerosis and patellofemoral joint space narrowing bilaterally. No acute fracture or dislocation. No effusion. IMPRESSION: Mild symmetric degenerative changes involving the patella and patellofemoral joint spaces bilaterally. <Electronically signed by Sincere Fisher > 03/24/20 0681
--- NOTE | 2020-03-24 18:15 | REP ---
INDICATION: PAIN IN UNSPECIFIED JOINT. COMPARISON: None. TECHNIQUE: Four views each hand FINDINGS: The joint spaces are symmetric and relatively well maintained. There is no evidence of acute fracture or destructive osseous lesion. IMPRESSION: No acute abnormality bilateral. There is evidence of an old healed boxer's fracture on the right. <Electronically signed by Brad Tate > 03/24/20 [id number]
== END ==
LOC: M RAD 11:02
PROVIDERS: ATTEND Internal Medicine
DX: M25.50 Pain in unspecified joint (principal); Z96.7 Presence of other bone and tendon implants

== ENCOUNTER 2020-08-24 15:00 | Outpatient (RCR) | payer OTHER, MEDICAID ==
[~2020-08-24 15:00] MED LIST changes: +LISI10TA22 PO; -LISI10TA4 PO
== END 2020-09-03 ==
LOC: M PT 15:00
PROVIDERS: ATTEND Internal Medicine
DX: M79.7 Fibromyalgia (principal)

== ENCOUNTER → 2020-09-02 | Outpatient (CLI) | payer OTHER, MEDICAID ==
[2020-09-02 13:11] LABS: FOLLICLE STIMULATING HORMONE 9.4 mIU/mL (1.4-18.1); LUTEINIZING HORMONE 3.1 mIU/mL (1.5-9.3)
[2020-09-03 18:09] LABS: TESTOSTERONE FREE (DIRECT) 5.1 pg/mL (7.2-24.0)
== END ==
LOC: M LAB 08:09
PROVIDERS: ATTEND Nurse Practitioner Family
DX: E29.1 Testicular hypofunction (principal)

== ENCOUNTER → 2020-09-02 | Outpatient (CLI) | payer OTHER, MEDICAID ==
[2020-09-02 09:13] LABS: BASO % 0.5 % (0.0-1.0); EOS # 0.2 10^3/uL (0.0-0.5); EOS % 3.2 % (0.0-3.0); HEMATOCRIT 42.9 % (42.0-52.0); HEMOGLOBIN 14.8 g/dl (13.5-17.5); LYMPH # 1.7 10^3/uL (1.5-5.0); MEAN CORPUSCULAR HEMOGLOBIN 32.6 pg (27.0-33.0); MEAN CORPUSCULAR HGB CONC 34.5 g/dl (32.0-36.5); MEAN CORPUSCULAR VOLUME 94.5 fl (80.0-96.0); MONO # 0.8 10^3/uL (0.0-0.8); MONO % 12.2 % (2.0-8.0); NEUTROPHILS # 3.8 10^3/uL (1.5-8.5); NEUTROPHILS % 57.8 % (36.0-66.0); PLATELET COUNT, AUTOMATED 162 10^3/uL (150-450); RED BLOOD COUNT 4.54 10^6/uL (4.30-6.10); WHITE BLOOD COUNT 6.5 10^3/uL (4.0-10.0)
[2020-09-02 09:35] LABS: ALBUMIN 3.9 GM/DL (3.2-5.2); ALT/SGPT 36 U/L (12-78); BILIRUBIN,TOTAL 0.3 MG/DL (0.2-1.0); BLOOD UREA NITROGEN 20 MG/DL (7-18); CALCIUM LEVEL 9.2 MG/DL (8.5-10.1); CARBAMAZEPINE (TEGRETOL) LEVEL 7.6 UG/ML (4.0-10.0); CARBON DIOXIDE LEVEL 29 MEQ/L (21-32); CHLORIDE LEVEL 107 MEQ/L (98-107); CREATININE FOR GFR 0.76 MG/DL (0.70-1.30); GLOMERULAR FILTRATION RATE > 60.0 (>56); GLUCOSE, FASTING 96 MG/DL (70-100); POTASSIUM SERUM 4.2 MEQ/L (3.5-5.1); SODIUM LEVEL 141 MEQ/L (136-145); TOTAL PROTEIN 7.2 GM/DL (6.4-8.2)
[2020-09-02 13:16] LABS: TOTAL 25(OH) VITAMIN D 24.4 NG/ML (30.0-100.0); VITAMIN B12 LEVEL 388 PG/ML
[2020-09-02 13:17] LABS: FOLATE > 24.0 NG/ML
== END ==
LOC: M LAB 08:10
PROVIDERS: ATTEND Psychiatry & Neurology Neurology
DX: R56.9 Unspecified convulsions (principal); E53.8 Deficiency of other specified B group vitamins; E55.9 Vitamin D deficiency, unspecified; E29.1 Testicular hypofunction

== ENCOUNTER 2020-12-06 08:24 | Emergency (ER) | payer OTHER, MEDICAID ==
[~2020-12-06] VITALS: Ht 182.9 cm; Wt 130.3 kg
[~2020-12-06 08:24] MED LIST changes: +OMEP40CA4 PO; -OMEP40CA97 PO
--- NOTE | 2020-12-06 10:38 | REP ---
INDICATION: cough, poss COVID. COMPARISON: 12/28/2018 TECHNIQUE: Portable FINDINGS: The technique utilized in obtaining the radiograph has magnified the cardiac silhouette and accentuated the interstitial markings. The superior mediastinal structures are midline. The cardiac silhouette is unremarkable in size, shape, and position. The diaphragmatic surfaces of the lungs are regular, and the costophrenic angles are clear. The pulmonary eckert are clear. The imaged osseous structures are intact. IMPRESSION: There is no acute cardiopulmonary disease. <Electronically signed by Brad Tate > 12/06/20 [id number]
--- NOTE | 2020-12-06 11:15 | REP ---
INDICATION: thumb numbness, poss COVID. COMPARISON: None. TECHNIQUE: Multiple ultrasonographic images of the deep venous structures of the right upper extremity were obtained to rule out deep venous thrombosis. The contralateral subclavian vein was also interrogated in a limited fashion for comparison. FINDINGS: There is no abnormal echogenic material seen in any of the visualized deep venous structures of the right upper extremity. Coaptation where applicable is appropriate throughout. IMPRESSION: Negative exam. <Electronically signed by Brad Tate > 12/06/20 1111
[2020-12-06 11:32] LABS: RSV AMPLIFICATION NEGATIVE (NEGATIVE)
[2020-12-06] MEDS ORDERED: VITMTA PO (13:49)
[2020-12-06] MEDS ORDERED: ERGO500029 PO (13:49)
[2020-12-06] MEDS ORDERED: ASPI81TA26 PO (13:49)
[2020-12-06] MEDS ORDERED: CARB400T4 PO (13:49)
[2020-12-06 13:50] VITALS: BP 180/100
[2020-12-06] MEDS ORDERED: amLODIPine 5 MG TAB PO ONE (13:50)
[2020-12-06] MEDS ORDERED: HOME MED LIST COMPLETE! XX SCH (13:50)
--- NOTE | 2020-12-06 14:00 | HPEPDOC ---
[facility] Medical History & Physical Date of Admission Dec 06, 2020 Date of Service: Dec 06, 2020 History and Physical Chief complaint: Who presented to the emergency room with complaints of body aches and cough History of present illness: Patient is a 51-year-old male with a PMHx of HTN, DM2, Bipolar disorder / PTSD, Fibromyalgia who presented to the emergency room with complaints of body aches and cough for the last 5 days. Patient reports that he and his for [place] Patients friend was experiencing symptoms and returned back home and inform them on 725 that he was COVID19 positive. On 11/30 patient began experiencing symptoms including body aches, nonproductive cough and stuffy nose. Patient has reported chills at home of 101F, that had improved with Tylenol. She denies any chest pain, palpitations or shortness of breath. Patient denies any nausea, vomiting, abdominal pain, diarrhea. Does report some constipation. Denies any urinary discomfort. Currently patient reports that he is hungry and has experienced a slight weight loss of approximately 4 pounds over last 1 week. Past Medical History: HTN, DM2, Bipolar disorder / PTSD, Fibromyalgia Past Surgical History: Toenail removal. Age 12 Allergies: See below Medications: See below Family History: - Mother with a history of heart problems Social History: - Denies the use of alcohol; patient quit smoking 9 years ago (smoker of 20 years); reports the use of medical marijuana - Reports exposure to friend who has been COVID 19 positive - Lives fianc - Occupation; patient reports that he is on disability Review of Systems: 10 point review of systems complete, all negative otherwise stated in HPI Physical exam: - Vitals: BP [171/90], HR [77], RR [18], Sat [97%RA], Temp [99.0F] - General: Lying in bed, No acute distress, Speaking in full sentences, AAOx3 - HEENT: NC, AT, PERRLA - CVS: RRR, +S1S2 - Lungs: Fair air entry bilaterally, No appreciable wheezing / rales / rhonchi - Abdomen: Soft, Non-distended, Non-tender - Extremities: No lower extremity edema, No calf tenderness - Neuro: No focal motor or sensory deficit - Skin: No visible rashes Labs: See below Imaging: CXR 12/06: There is no acute cardiopulmonary disease. RUE Vascular US 12/06: Negative exam. EKG: See below Assessment and Plan: Cough - likely 06/08 COVID19 - Presented to the emergency room with complaints of cough and body aches. Denies any shortness of breath or chest pain - Saturating well on room air - Appears comfortable - COVID19 positive on 12/06/2020 - Imaging negative - Discussed risks / benefits of monoclonal antibody infusion; patient has agreed and wants to proceed with infusion - Will sign consent - Will have outpatient follow up with PCP and have outpatient follow up based on [facility] protocols HTN - Patients systolic blood pressures in the 170s - Patient reported that he had stopped taking medications. After he was taken off of it by his primary care provider about a year ago - Will reevaluate blood pressure later today; if still elevated, will discharge with amlodipine NIDDM2 - Patient reports that this is diet-controlled and has been taken off of med ications Bipolar disorder / PTSD / Fibromyalgia - c/w home medications on discharge DVT prophylaxis - Will c/w early ambulation on discharge Vital Signs Vital Signs Date Time Temp Pulse Resp B/P (MAP) Pulse Ox O2 Delivery O2 Flow Rate FiO2 12/06/20 12:21 67 18 183/106 (131) 100 Room Air 12/06/20 08:30 99.0 Laboratory Data Labs 24H Laboratory Tests 2 12/06/20 10:37: Coronavirus (COVID-19)(PCR) POSITIVEA, Influenza Type A (RT-PCR) NEGATIVE, Influenza Type B (RT-PCR) NEGATIVE, Respiratory Syncytial Virus (PCR) NEGATIVE Home Medications Scheduled Aspirin (Aspirin EC) 81 Mg Tablet.dr, 81 MG PO DAILY Carbamazepine (Carbamazepine ER) 400 Mg Tab.er.12h, 400 MG PO BID Ergocalciferol (Vitamin D2) (Vitamin D2) 50,000 Units Cap, 50,000 UNITS PO Q2WK EVERY OTHER SUNDAY Multivitamins (Thera M Plus Tablet) 1 Each Tablet, 1 TAB PO DAILY Nitroglycerin (Nitroglycerin) 0.4 Mg Tab.subl, 1 TAB SL ASDIRECTED for chest pain 1st sign of attack; may repeat q5 mins; if pain persists after 3 in 15 min, seek medical attention Allergies Coded Allergies: NSAIDS (Non-Steroidal Anti-Inflamma (Verified Allergy, Unknown, 12/28/18) Sulfa (Sulfonamide Antibiotics) (Verified Adverse Reaction, Unknown, N/V, 12/06/20) ciprofloxacin (Verified Adverse Reaction, Unknown, N/V, 12/06/20) codeine (Verified Adverse Reaction, Unknown, N/V, 12/06/20) WINSOME HASKINS MD Dec 06, 2020 14:00
[2020-12-06] MEDS ORDERED: AMLO1TAB24 PO (14:01)
[2020-12-06 14:54] VITALS: BP 180/98
== END 2020-12-06 15:40 | disposition home or self-care (01) ==
LOC: M ED 08:24
DX: U07.1 COVID-19 (principal); R20.2 Paresthesia of skin; E11.9 Type 2 diabetes mellitus without complications; I10 Essential (primary) hypertension; E78.5 Hyperlipidemia, unspecified; F31.9 Bipolar disorder, unspecified; Z88.1 Allergy status to other antibiotic agents; Z88.2 Allergy status to sulfonamides; Z88.6 Allergy status to analgesic agent; Z79.899 Other long term (current) drug therapy

== ENCOUNTER 2020-12-06 13:25 | Outpatient (CLI) | payer OTHER, MEDICAID ==
[2020-12-06] MEDS ORDERED: methylPREDNISolone 125MG 2ML VIAL IV PRN (13:45)
[2020-12-06] MEDS ORDERED: ALBUTEROL 90 MCG/ACT 8GM HFA INHALER INH PRN (13:45)
[2020-12-06] MEDS ORDERED: ALBUTEROL SULFATE 2.5 MG/0.5 ML INH NEB SOLN INH PRN (13:45)
[2020-12-06] MEDS ORDERED: NS 1,000 ML IV SCH (13:45)
[2020-12-06] MEDS ORDERED: EPINEPHrine INJ 1 MG/ML 1ML AMP IM PRN (13:45)
[2020-12-06] MEDS ORDERED: diphenhydrAMINE 50MG/ML VIAL (J1200) IV PRN (13:45)
[2020-12-06] MEDS ORDERED: CARB400T4 PO (13:49)
[2020-12-06] MEDS ORDERED: ERGO500029 PO (13:49)
[2020-12-06] MEDS ORDERED: VITMTA PO (13:49)
[2020-12-06] MEDS ORDERED: ASPI81TA26 PO (13:49)
[2020-12-06] MEDS ORDERED: amLODIPine 5 MG TAB PO ONE (14:00)
[2020-12-06] MEDS ORDERED: AMLO1TAB24 PO (14:01)
[2020-12-06] MEDS ORDERED: CASIRIVIMAB/IMDEVIMAB 1,200 MG in NS 250 ML IV ONE (15:00)
[2020-12-06 15:49] VITALS: BP 168/91
[2020-12-06 16:55] VITALS: BP 158/88
[2020-12-06 17:16] VITALS: BP 146/82
[2020-12-06 17:45] VITALS: BP 158/87
[2020-12-06 19:08] VITALS: BP 140/80
== END 2020-12-06 19:12 | disposition home or self-care (01) ==
LOC: M OPCLI4PR 13:25 → M 4MAIN 15:43 → M OPCLI4PR 19:12
PROVIDERS: ATTEND Internal Medicine
DX: U07.1 COVID-19 (principal); Z88.1 Allergy status to other antibiotic agents; Z88.6 Allergy status to analgesic agent; Z88.2 Allergy status to sulfonamides
CPT/HCPCS: 71045; 87631; 93971; 99285; M0243

== ENCOUNTER 2021-01-02 12:39 | Emergency (ER) | payer OTHER, MEDICAID ==
[~2021-01-02] VITALS: Ht 180.3 cm; Wt 127.3 kg
[2021-01-02 12:39] VITALS: BP 173/94
[~2021-01-02 12:39] MED LIST changes: +AMLO1TAB24 PO; +ASPI81TA26 PO; +CARB400T4 PO; +ERGO500029 PO
[2021-01-02] MEDS ORDERED: PRED20TA PO (13:36)
== END 2021-01-02 14:03 | disposition home or self-care (01) ==
LOC: M ED 12:39
DX: H01.00A Unspecified blepharitis right eye, upper and lower eyelids (principal); H02.843 Edema of right eye, unspecified eyelid; F17.200 Nicotine dependence, unspecified, uncomplicated; Z86.73 Personal history of transient ischemic attack (TIA), and cerebral infarction without residual deficits; R56.9 Unspecified convulsions; G62.89 Other specified polyneuropathies; E78.00 Pure hypercholesterolemia, unspecified; I10 Essential (primary) hypertension; J45.909 Unspecified asthma, uncomplicated; Z87.01 Personal history of pneumonia (recurrent); G47.30 Sleep apnea, unspecified; K21.9 Gastro-esophageal reflux disease without esophagitis; K29.70 Gastritis, unspecified, without bleeding; N40.0 Benign prostatic hyperplasia without lower urinary tract symptoms; E11.9 Type 2 diabetes mellitus without complications; M54.9 Dorsalgia, unspecified; M54.40 Lumbago with sciatica, unspecified side; F41.9 Anxiety disorder, unspecified; F43.10 Post-traumatic stress disorder, unspecified; F31.89 Other bipolar disorder; Z79.82 Long term (current) use of aspirin; Z79.899 Other long term (current) drug therapy; Z88.6 Allergy status to analgesic agent; Z88.2 Allergy status to sulfonamides; Z88.1 Allergy status to other antibiotic agents; Z88.5 Allergy status to narcotic agent

== ENCOUNTER → 2021-01-04 | Outpatient (CLI) | payer OTHER, MEDICAID ==
[~2021-01-04] MED LIST changes: +PRED20TA PO
[2021-01-04 09:18] LABS: HEMATOCRIT 43.2 % (42.0-52.0); HEMOGLOBIN 14.6 g/dl (13.5-17.5); MEAN CORPUSCULAR HEMOGLOBIN 32.2 pg (27.0-33.0); MEAN CORPUSCULAR HGB CONC 33.8 g/dl (32.0-36.5); MEAN CORPUSCULAR VOLUME 95.4 fl (80.0-96.0); PLATELET COUNT, AUTOMATED 152 10^3/uL (150-450); RED BLOOD COUNT 4.53 10^6/uL (4.30-6.10); WHITE BLOOD COUNT 4.5 10^3/uL (4.0-10.0)
[2021-01-04 09:52] LABS: ALBUMIN 3.7 GM/DL (3.2-5.2); ALT/SGPT 35 U/L (12-78); BILIRUBIN,TOTAL 0.3 MG/DL (0.2-1.0); BLOOD UREA NITROGEN 21 MG/DL (7-18); CALCIUM LEVEL 8.9 MG/DL (8.5-10.1); CARBON DIOXIDE LEVEL 28 MEQ/L (21-32); CHLORIDE LEVEL 107 MEQ/L (98-107); CHOLESTEROL LEVEL 213 MG/DL (<200); CREATININE FOR GFR 0.68 MG/DL (0.70-1.30); GLOMERULAR FILTRATION RATE > 60.0 (>56); GLUCOSE, FASTING 91 MG/DL (70-100); HDL CHOLESTEROL 44 MG/DL (>40); LDL CHOLESTEROL 130 MG/DL (<100); NON-HDL-C 169 MG/DL; POTASSIUM SERUM 4.2 MEQ/L (3.5-5.1); SODIUM LEVEL 139 MEQ/L (136-145); TRIGLYCERIDES LEVEL 195 MG/DL (<150)
[2021-01-04 10:19] LABS: ESTRADIOL < 19.0 PG/ML (<39.8); FOLLICLE STIMULATING HORMONE 9.2 mIU/mL (1.4-18.1); LUTEINIZING HORMONE 3.4 mIU/mL (1.5-9.3); PROLACTIN 5.4 NG/ML (2.1-17.7)
[2021-01-05 19:07] LABS: SEX HORMONE BINDING GLOBULIN 29.2 nmol/L (19.3-76.4); TESTOSTERONE FREE (DIRECT) 7.1 pg/mL (7.2-24.0)
== END ==
LOC: M LAB 08:06
PROVIDERS: ATTEND Nurse Practitioner Family
DX: E29.1 Testicular hypofunction (principal); Z12.5 Encounter for screening for malignant neoplasm of prostate
CPT/HCPCS: 36415; 80053; 80061; 82670; 83001; 83002; 84146; 84270; 84402; 84403; 85027; G0103

== ENCOUNTER → 2021-01-05 | Outpatient (CLI) | payer OTHER, MEDICAID | LOC: M LABSMTC 11:53 | PROVIDERS: ATTEND Pediatrics | DX: Z20.822 Contact with and (suspected) exposure to COVID-19 (principal) | CPT/HCPCS: C9803; U0003 ==

== ENCOUNTER → 2021-09-07 | Outpatient (CLI) | payer OTHER, MEDICAID, MEDICARE ==
[2021-09-07 17:43] LABS: ALT/SGPT 34 U/L (12-78); BILIRUBIN,TOTAL 0.3 MG/DL (0.2-1.0); BLOOD UREA NITROGEN 21 MG/DL (7-18); CALCIUM LEVEL 9.6 MG/DL (8.5-10.1); CARBON DIOXIDE LEVEL 28 MEQ/L (21-32); CHLORIDE LEVEL 108 MEQ/L (98-107); CREATININE FOR GFR 0.76 MG/DL (0.70-1.30); GLOMERULAR FILTRATION RATE > 60.0 (>56); GLUCOSE, FASTING 112 MG/DL (70-100); POTASSIUM SERUM 4.6 MEQ/L (3.5-5.1); SODIUM LEVEL 142 MEQ/L (136-145)
[2021-09-07 17:53] LABS: TOTAL 25(OH) VITAMIN D 28.8 NG/ML (30.0-100.0); VITAMIN B12 LEVEL 484 PG/ML
== END ==
LOC: M PLALAB 09:50
PROVIDERS: ATTEND Psychiatry & Neurology Neurology
DX: R56.9 Unspecified convulsions (principal)

== ENCOUNTER → 2021-09-16 | Outpatient (CLI) | payer MEDICARE, MEDICAID | LOC: M SOG 10:32 | PROVIDERS: ATTEND Orthopaedic Surgery | DX: M54.2 Cervicalgia (principal); M54.50 Low back pain, unspecified ==

== ENCOUNTER → 2021-11-25 | Outpatient (CLI) | payer MEDICARE, MEDICAID ==
[2021-11-25 10:44] LABS: BASO % 0.5 % (0.0-1.0); EOS # 0.2 10^3/uL (0.0-0.5); EOS % 2.8 % (0.0-3.0); HEMATOCRIT 40.6 % (42.0-52.0); HEMOGLOBIN 14.3 g/dl (13.5-17.5); LYMPH % 24.5 % (24.0-44.0); MEAN CORPUSCULAR HEMOGLOBIN 33.7 pg (27.0-33.0); MEAN CORPUSCULAR HGB CONC 35.2 g/dl (32.0-36.5); MEAN CORPUSCULAR VOLUME 95.8 fl (80.0-96.0); MONO # 0.7 10^3/uL (0.0-0.8); MONO % 8.2 % (2.0-8.0); NEUTROPHILS # 5.2 10^3/uL (1.5-8.5); NEUTROPHILS % 63.5 % (36.0-66.0); PLATELET COUNT, AUTOMATED 176 10^3/uL (150-450); RED BLOOD COUNT 4.24 10^6/uL (4.30-6.10); WHITE BLOOD COUNT 8.3 10^3/uL (4.0-10.0)
[2021-11-25 11:45] LABS: CHOLESTEROL RISK RATIO 4.951 (<5)
[2021-11-25 12:25] LABS: MALB URINE SIEMENS 32.7 MG/L; MAU/CREAT RATIO 10.9 MCG/MG (0.0-30.0)
[2021-11-25 13:38] LABS: HEMOGLOBIN A1c 5.3 %
== END ==
LOC: M PLALAB 07:56
PROVIDERS: ATTEND Internal Medicine
DX: E11.9 Type 2 diabetes mellitus without complications (principal); G62.9 Polyneuropathy, unspecified; E78.5 Hyperlipidemia, unspecified

== ENCOUNTER → 2021-11-28 | Outpatient (CLI) | payer MEDICARE, MEDICAID | LOC: M WUC 11:06 | PROVIDERS: ATTEND Physician Assistant | DX: M54.50 Low back pain, unspecified (principal); M25.552 Pain in left hip; M51.37 Other intervertebral disc degeneration, lumbosacral region; M16.0 Bilateral primary osteoarthritis of hip ==

== ENCOUNTER → 2022-05-29 | Outpatient (CLI) | payer MEDICARE, MEDICAID ==
[~2022-05-29] MED LIST changes: +DIPH-435 PO; -DIPH25CA32 PO
[2022-05-29 13:45] LABS: BASO % 0.7 % (0.0-1.0); EOS # 0.2 10^3/uL (0.0-0.5); EOS % 4.3 % (0.0-3.0); HEMATOCRIT 44.8 % (42.0-52.0); HEMOGLOBIN 14.9 g/dl (13.5-17.5); LYMPH # 1.7 10^3/uL (1.5-5.0); LYMPH % 31.1 % (24.0-44.0); MEAN CORPUSCULAR HGB CONC 33.3 g/dl (32.0-36.5); MEAN CORPUSCULAR VOLUME 96.1 fl (80.0-96.0); MONO # 0.3 10^3/uL (0.0-0.8); MONO % 6.3 % (2.0-8.0); NEUTROPHILS # 3.1 10^3/uL (1.5-8.5); NEUTROPHILS % 57.2 % (36.0-66.0); PLATELET COUNT, AUTOMATED 178 10^3/uL (150-450); RED BLOOD COUNT 4.66 10^6/uL (4.30-6.10); WHITE BLOOD COUNT 5.4 10^3/uL (4.0-10.0)
[2022-05-29 14:19] LABS: ALKALINE PHOSPHATASE 82 U/L (46-116); ALT/SGPT 26 U/L (7.0-40); AST/SGOT 19 U/L (<34); BILIRUBIN,TOTAL 0.3 MG/DL (0.3-1.2); BLOOD UREA NITROGEN 19 MG/DL (9-23); CARBON DIOXIDE LEVEL 30 MMOL/L (20-31); CHLORIDE LEVEL 102 MMOL/L (98-107); CREATININE FOR GFR 0.81 MG/DL (0.70-1.30); FOLATE > 24.0 NG/ML (>5.4); GLOMERULAR FILTRATION RATE > 60.0 (>56); GLUCOSE, FASTING 151 MG/DL (60-100); POTASSIUM SERUM 4.4 MMOL/L (3.5-5.1); SODIUM LEVEL 137 MMOL/L (136-145); TOTAL 25(OH) VITAMIN D 47.9 NG/ML (20.0-100.0); TOTAL PROTEIN 7.1 G/DL (5.7-8.2)
[2022-05-29 14:20] LABS: VITAMIN B12 LEVEL 417 PG/ML (211-911)
[2022-05-30 09:08] LABS: CARBAMAZEPINE (TEGRETOL) LEVEL 7.4 ug/mL (4.0-12.0)
== END ==
LOC: M PLALAB 10:20
PROVIDERS: ATTEND Psychiatry & Neurology Neurology
DX: R56.9 Unspecified convulsions (principal); E53.8 Deficiency of other specified B group vitamins; E55.9 Vitamin D deficiency, unspecified; Z79.899 Other long term (current) drug therapy

== ENCOUNTER → 2022-11-17 | Outpatient (CLI) | payer MEDICARE, MEDICAID ==
[2022-11-17 11:06] LABS: HEMOGLOBIN 15.2 g/dl (13.5-17.5); MEAN CORPUSCULAR HEMOGLOBIN 32.8 pg (27.0-33.0); MEAN CORPUSCULAR HGB CONC 33.8 g/dl (32.0-36.5); PLATELET COUNT, AUTOMATED 161 10^3/uL (150-450); RED BLOOD COUNT 4.64 10^6/uL (4.30-6.10); WHITE BLOOD COUNT 4.4 10^3/uL (4.0-10.0)
[2022-11-17 11:46] LABS: CREATININE, URINE 135.6 MG/DL; MAU/CREAT RATIO 2.2 MCG/MG (0.0-30.0)
[2022-11-17 11:48] LABS: C REACTIVE PROTEIN QUANTITATIV < 0.40 MG/DL (<1.0); HEMOGLOBIN A1c 5.6 % (4.0-6.0)
[2022-11-17 11:50] LABS: ALKALINE PHOSPHATASE 93 U/L (46-116); ALT/SGPT 25 U/L (7.0-40); AST/SGOT < 8 U/L (<34); BILIRUBIN,TOTAL 0.4 MG/DL (0.3-1.2); BLOOD UREA NITROGEN 21 MG/DL (9-23); CALCIUM LEVEL 9.2 MG/DL (8.5-10.1); CARBON DIOXIDE LEVEL 29 MMOL/L (20-31); CHLORIDE LEVEL 104 MMOL/L (98-107); CHOLESTEROL LEVEL 207 MG/DL (<200); CHOLESTEROL RISK RATIO 5.01 (<5); CREATININE FOR GFR 0.78 MG/DL (0.70-1.30); FREE T4 0.92 NG/DL (0.89-1.76); GLOMERULAR FILTRATION RATE > 60.0 (>56); GLUCOSE, FASTING 105 MG/DL (60-100); HDL CHOLESTEROL 41.3 MG/DL (>40); LDL CHOLESTEROL 121.9 MG/DL (<100); NON-HDL-C 165.7 MG/DL; POTASSIUM SERUM 4.7 MMOL/L (3.5-5.1); SODIUM LEVEL 138 MMOL/L (136-145); TOTAL 25(OH) VITAMIN D 52.6 NG/ML (20.0-100.0); TOTAL PROTEIN 6.9 G/DL (5.7-8.2); TRIGLYCERIDES LEVEL 219 MG/DL (<150); VITAMIN B12 LEVEL 426 PG/ML (211-911)
== END ==
LOC: M PLALAB 07:19
PROVIDERS: ATTEND Internal Medicine Hematology
DX: E78.5 Hyperlipidemia, unspecified (principal); M79.7 Fibromyalgia; F31.9 Bipolar disorder, unspecified; I10 Essential (primary) hypertension; E11.42 Type 2 diabetes mellitus with diabetic polyneuropathy; M43.06 Spondylolysis, lumbar region; E66.01 Morbid (severe) obesity due to excess calories; Z68.44 Body mass index [BMI] 60.0-69.9, adult

== ENCOUNTER → 2023-05-11 | Outpatient (CLI) | payer MEDICARE, MEDICAID ==
[2023-05-11 11:30] LABS: FREE T4 0.93 NG/DL (0.89-1.76); THYROID STIMULATING HORMONE 1.44 uIU/ML (0.55-4.78)
== END ==
LOC: M PLALAB 07:56
PROVIDERS: ATTEND Internal Medicine Hematology
DX: E78.5 Hyperlipidemia, unspecified (principal)

== ENCOUNTER → 2023-08-30 | Outpatient (CLI) | payer MEDICARE, MEDICAID ==
[~2023-08-30] MED LIST changes: -KLON0.5T PO; +KLON0.5T8 PO
[2023-08-30 10:49] LABS: BASO % 0.5 % (0.0-1.0); EOS # 0.2 10^3/uL (0.0-0.5); EOS % 3.6 % (0.0-3.0); HEMOGLOBIN 15.4 g/dl (13.5-17.5); LYMPH # 1.6 10^3/uL (1.5-5.0); LYMPH % 28.3 % (24.0-44.0); MEAN CORPUSCULAR VOLUME 94.4 fl (80.0-96.0); MONO # 0.6 10^3/uL (0.0-0.8); MONO % 10.9 % (2.0-8.0); NEUTROPHILS # 3.2 10^3/uL (1.5-8.5); NEUTROPHILS % 56.2 % (36.0-66.0); PLATELET COUNT, AUTOMATED 162 10^3/uL (150-450); RED BLOOD COUNT 4.66 10^6/uL (4.30-6.10); WHITE BLOOD COUNT 5.6 10^3/uL (4.0-10.0)
[2023-08-30 10:55] LABS: C REACTIVE PROTEIN QUANTITATIV < 0.40 MG/DL (<1.0)
[2023-08-30 10:57] LABS: ALBUMIN 4.1 G/DL (3.2-5.2); ALKALINE PHOSPHATASE 79 U/L (46-116); ALT/SGPT 37 U/L (7.0-40); AST/SGOT 20 U/L (<34); BILIRUBIN,TOTAL 0.5 MG/DL (0.3-1.2); BLOOD UREA NITROGEN 21 MG/DL (9-23); CALCIUM LEVEL 9.6 MG/DL (8.5-10.1); CARBON DIOXIDE LEVEL 29 MMOL/L (20-31); CHLORIDE LEVEL 103 MMOL/L (98-107); CHOLESTEROL LEVEL 216 MG/DL (<200); CHOLESTEROL RISK RATIO 5.49 (<5); CREATININE FOR GFR 0.82 MG/DL (0.70-1.30); FREE T4 1.02 NG/DL (0.89-1.76); GLOMERULAR FILTRATION RATE > 60.0 (>56); GLUCOSE, FASTING 106 MG/DL (60-100); HDL CHOLESTEROL 39.3 MG/DL (>40); LDL CHOLESTEROL 137.5 MG/DL (<100); NON-HDL-C 176.7 MG/DL; POTASSIUM SERUM 4.5 MMOL/L (3.5-5.1); PSA SCREENING 0.73 NG/ML (< 4.00); SODIUM LEVEL 139 MMOL/L (136-145); THYROID STIMULATING HORMONE 1.425 uIU/ML (0.55-4.78); TOTAL 25(OH) VITAMIN D 62.4 NG/ML (20.0-100.0); TRIGLYCERIDES LEVEL 196 MG/DL (<150)
[2023-08-30 10:58] LABS: VITAMIN B12 LEVEL 485 PG/ML (211-911)
[2023-08-30 11:14] LABS: HEMOGLOBIN A1c 5.5 % (4.0-6.0)
[2023-08-30 11:51] LABS: CREATININE, URINE 305.1 MG/DL; MAU/CREAT RATIO 3.9 MCG/MG (0.0-30.0)
== END ==
LOC: M PLALAB 07:12
PROVIDERS: ATTEND Internal Medicine Hematology
DX: E11.9 Type 2 diabetes mellitus without complications (principal); Z12.5 Encounter for screening for malignant neoplasm of prostate; Z79.899 Other long term (current) drug therapy
CPT/HCPCS: 36415; 80053; 80061; 82043; 82306; 82607; 83036; 83525; 84439; 84443; 85025; 86140; G0103

== ENCOUNTER → 2024-11-21 | Outpatient (CLI) | payer MEDICARE, MEDICAID ==
[~2024-11-21] MED LIST changes: -AMBI5TAB PO; +BUPR-766 PO; -BUPR300T92 PO; +CARB400T11 PO; -CARB400T4 PO; -FLOM0.4C39 PO; +TAMS-18 PO; +ZOLP-532 PO
[2024-11-21 10:52] LABS: BASO # 0.0 10^3/uL (0.0-0.2); BASO % 0.8 % (0.0-1.0); EOS # 0.2 10^3/uL (0.0-0.5); EOS % 5.1 % (0.0-3.0); LYMPH # 1.7 10^3/uL (1.5-5.0); LYMPH % 35.0 % (24.0-44.0); MONO # 0.5 10^3/uL (0.0-0.8); MONO % 11.2 % (2.0-8.0); NEUTROPHILS # 2.2 10^3/uL (1.5-8.5); NEUTROPHILS % 47.1 % (36.0-66.0); PLATELET COUNT, AUTOMATED 157 10^3/uL (150-450)
[2024-11-21 11:22] LABS: ESTIMATED AVERAGE GLUCOSE 114.0 MG/DL (60-110)
[2024-11-21 11:25] LABS: ALT/SGPT 30 U/L (7.0-40); AST/SGOT 19 U/L (<34); CALCIUM LEVEL 9.1 MG/DL (8.5-10.1); CARBON DIOXIDE LEVEL 29 MMOL/L (20-31); CHLORIDE LEVEL 102 MMOL/L (98-107); CHOLESTEROL LEVEL 185 MG/DL (<200); CHOLESTEROL RISK RATIO 3.99 (<5); CREATININE FOR GFR 0.77 MG/DL (0.70-1.30); GLOMERULAR FILTRATION RATE > 90.0 (>56); LDL CHOLESTEROL 101.1 MG/DL (<100); NON-HDL-C 138.7 MG/DL; POTASSIUM SERUM 4.4 MMOL/L (3.5-5.1); SODIUM LEVEL 141 MMOL/L (136-145); TRIGLYCERIDES LEVEL 188 MG/DL (<150)
[2024-11-21 11:34] LABS: TOTAL 25(OH) VITAMIN D 34.6 NG/ML (20.0-100.0)
== END ==
LOC: M PLALAB 06:46
PROVIDERS: ATTEND Family Medicine
DX: Z51.81 Encounter for therapeutic drug level monitoring (principal); I10 Essential (primary) hypertension; Z79.899 Other long term (current) drug therapy; E11.9 Type 2 diabetes mellitus without complications; E55.9 Vitamin D deficiency, unspecified; E78.5 Hyperlipidemia, unspecified

== ENCOUNTER → 2025-03-12 | Outpatient (CLI) | payer MEDICARE, MEDICAID ==
[~2025-03-12] MED LIST changes: +CARB-19 PO; -CARB1TAB20 PO
== END ==
LOC: M RAD 10:42
PROVIDERS: ATTEND Family Medicine
DX: Z12.2 Encounter for screening for malignant neoplasm of respiratory organs (principal); F17.211 Nicotine dependence, cigarettes, in remission

== ENCOUNTER → 2025-03-24 | Outpatient (CLI) | payer MEDICARE, MEDICAID | LOC: M PLARAD 11:52 | PROVIDERS: ATTEND Family Medicine | DX: R91.8 Other nonspecific abnormal finding of lung field (principal) | CPT/HCPCS: 78815; A9552 ==

== ENCOUNTER → 2025-04-01 | Outpatient (CLI) | payer MEDICARE, MEDICAID | LOC: M RAD 09:36 | PROVIDERS: ATTEND Internal Medicine Pulmonary Disease | DX: R91.8 Other nonspecific abnormal finding of lung field (principal) ==

== ENCOUNTER → 2025-04-06 | Outpatient (REF) | payer MEDICARE, MEDICAID ==
[~2025-04-06] MED LIST changes: +THERTAB52 PO
== END ==
LOC: M LAB REF 17:03
PROVIDERS: ATTEND Physician Assistant Medical
DX: B34.9 Viral infection, unspecified (principal)

== ENCOUNTER 2025-04-15 06:00 | Day surgery (SDC) | payer MEDICARE, MEDICAID ==
[~2025-04-15] VITALS: Ht 180.3 cm; Wt 128.8 kg
[2025-04-15] MEDS ORDERED: dexAMETHasone 4 MG/ML 1 ML VIAL As Ordered ONE (06:51)
[2025-04-15] MEDS ORDERED: SUGAMMADEX SODIUM 500 MG/5 ML VIAL As Ordered ONE (06:51)
[2025-04-15] MEDS ORDERED: LIDOCAINE 2% 100 MG/5 ML SDV (FOR ANES.) As Ordered ONE (06:51)
[2025-04-15] MEDS ORDERED: ROCURONIUM BROMIDE 50MG/5ML VIAL As Ordered ONE (06:51)
[2025-04-15] MEDS ORDERED: ONDANSETRON 4MG/2ML VIAL As Ordered ONE (06:51)
[2025-04-15] MEDS ORDERED: MIDAZOLAM INJ 2 MG/2 ML VIAL As Ordered ONE (06:56)
[2025-04-15] MEDS: LR 1,000 ML IV SCH (07:00)
[2025-04-15] MEDS: THROMBIN 5,000 UNITS VIAL As Ordered ONE (07:19)
[2025-04-15] MEDS ORDERED: dexmedeTOMIDine (4 MCG/ML) 200 MCG/50 ML BTL As Ordered ONE (07:26)
[2025-04-15] MEDS: LIDOCAINE PRES-FREE 2% 10 ML AMP INH ONE (07:28)
[2025-04-15] MEDS: ALBUTEROL SULFATE 2.5 MG/0.5 ML INH CONCENTRATE NEB SOLN INH ONE (07:28)
[2025-04-15] MEDS ORDERED: ACETAMINOPHEN 1000MG/100ML IV BAG As Ordered ONE (08:02)
[2025-04-15] MEDS: CETACAINE SPRAY 5 GM As Ordered ONE (08:14)
[2025-04-15] MEDS: EPINEPHrine 1 MG/10 ML SYRINGE 1.5IN As Ordered ONE (08:38)
[2025-04-15] MEDS ORDERED: ESMOLOL 100 MG/10 ML VIAL As Ordered ONE (09:22)
[2025-04-15] MEDS ORDERED: MORPHINE 2 MG/ML 1 ML VIAL IV PRN (09:25)
[2025-04-15] MEDS ORDERED: HYDROMORPHONE HCL 0.5 MG/0.5 ML SYRINGE IV PRN (09:25)
[2025-04-15] MEDS ORDERED: ONDANSETRON 4MG/2ML VIAL IV PRN (09:25)
[2025-04-15 10:06] VITALS: BP 139/103; TEMP 97.3; O2SAT 98
== END 2025-04-15 10:30 | disposition home or self-care (01) ==
LOC: M SDC 06:00
PROVIDERS: ATTEND Internal Medicine Pulmonary Disease
DX: J98.4 Other disorders of lung (principal); I10 Essential (primary) hypertension; E78.5 Hyperlipidemia, unspecified; Z86.73 Personal history of transient ischemic attack (TIA), and cerebral infarction without residual deficits; K21.9 Gastro-esophageal reflux disease without esophagitis; Z79.82 Long term (current) use of aspirin; Z88.5 Allergy status to narcotic agent; Z88.2 Allergy status to sulfonamides; Z88.8 Allergy status to other drugs, medicaments and biological substances; Z88.1 Allergy status to other antibiotic agents; F17.200 Nicotine dependence, unspecified, uncomplicated; G47.30 Sleep apnea, unspecified; N40.0 Benign prostatic hyperplasia without lower urinary tract symptoms
CPT/HCPCS: 31627; 31628; 31629; 31654; 71045; 76000; 88173; 88305; C1601; J0131; J0168; J1100; J1805; J2250; J2405; J3010; S2900

== ENCOUNTER → 2025-04-22 | Outpatient (CLI) | payer MEDICARE, MEDICAID ==
[2025-04-22 15:46] LABS: CREATININE FOR GFR 0.89 MG/DL (0.70-1.30); GLOMERULAR FILTRATION RATE > 90.0 (>56)
== END ==
LOC: M LAB 14:18
PROVIDERS: ATTEND Internal Medicine Pulmonary Disease
DX: R91.8 Other nonspecific abnormal finding of lung field (principal)

== ENCOUNTER → 2025-05-04 | Outpatient (CLI) | payer MEDICARE, MEDICAID ==
[~2025-05-04] MED LIST changes: +ISOVUE-370 76% 100 ML VIAL As Ordered ONE
== END ==
LOC: M RAD 08:00
PROVIDERS: ATTEND Internal Medicine Pulmonary Disease
DX: R91.8 Other nonspecific abnormal finding of lung field (principal)
CPT/HCPCS: 71260; Q9967